=== PATIENT | female | born 1990 | race Caucasian/White ===

== ENCOUNTER 2019-10-20 03:26 | Emergency (ER) | payer MEDICAID ==
[2019-10-20 04:23] LABS: APPEARANCE,URINE CLEAR; BILIRUBIN,URINE NEGATIVE (NEGATIVE); COLOR,URINE YELLOW; GLUCOSE, URINE NEGATIVE (NEGATIVE); KETONES,URINE NEGATIVE (NEGATIVE); LEUKOCYTE ESTERASE,URINE NEGATIVE (NEGATIVE); NITRITE,URINE NEGATIVE (NEGATIVE); PROTEIN,URINE NEGATIVE (NEGATIVE); URINE SPECIFIC GRAVITY 1.016; UROBILINOGEN,URINE NEGATIVE mg/dL (<2.0)
--- NOTE | 2019-10-20 05:16 | RADIOLOGY REPORT (SQ) ---
FIRST TRIMESTER OBSTETRIC ULTRASOUND: 10/20/2019 4:13 AM CDT COMPARISON: None available HISTORY: 29-year old patient with vaginal bleeding, . TECHNIQUE: Multiple collins scale and color Doppler images of the pelvis were obtained transabdominally and transvaginally. FINDINGS: The uterus measures 10.6 x 1.8 x 9.2 cm. A single gestational sac is seen within the uterus. The sac contains an embryo no measurements were obtained on current imaging. Cardiac motion is present with a heart rate of 141 bpm. No perigestational hemorrhage is seen. The cervix measures 3.5 cm in length. The bilateral ovaries were not visualized. No free fluid is seen in the cul-de-sac. IMPRESSION: There is a single, live intrauterine gestation. No measurements were obtained on current imaging. Obstetric follow up for routine care should be performed.
[2019-10-20 06:36] LABS: ABSOLUTE EOSINOPHILS # (AUTO) 0.1 10^3/uL (0.0-0.6); ABSOLUTE LYMPHOCYTES (AUTO) 1.6 10^3/uL (0.5-4.7); ABSOLUTE MONOCYTES (AUTO) 0.4 10^3/uL (0.1-1.4); ABSOLUTE NEUT (AUTO) 6.5 10^3/uL (1.7-8.2); BASOPHILS % (AUTO) 0.4 % (0-2); EOSINOPHILS % (AUTO) 0.8 % (0-6); HEMATOCRIT 41.6 % (36.0-47.0); HEMOGLOBIN 14.7 g/dL (12.0-15.5); LYMPHOCYTES % (AUTO) 18.7 % (13-45); MEAN CORPUSCULAR HGB CONC 35.3 g/dL (32.0-36.0); MEAN CORPUSCULAR VOLUME 91 fl (80-97); MONOCYTES % (AUTO) 4.8 % (3-13); PLATELET COUNT 185 10^3/uL (150-450); RED CELL DISTRIBUTION WIDTH 12.9 % (11.5-14.0); SEGMENTED NEUTROPHILS % (AUTO) 75.3 % (42-78); TOTAL CELLS COUNTED % (AUTO) 100 %; WHITE BLOOD COUNT 8.6 10^3/uL (4.0-10.5)
[2019-10-20] MEDS ORDERED: RINGERS SOLUTION,LACTATED 1,000 ML IV ONE (08:54)
--- NOTE | 2019-10-20 10:30 | ER Document Report ---
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 Patient states she is x13 weeks and takes vitamins. Patient states she is A0, and the past x4 pregnancies did not have any complications. Patient states she visited [facility] days ago for a check up and had a ultrasound for genetic testing, which showed normal results. Patient states this morning she had x2 dark blood clots and wiped away some blood when using the bathroom before being seen in the ED. Denies vaginal discharge, intercourse, or UTI's. Patient reports some morning sickness and intermittent cramping lately. - Related Data Allergies/Adverse Reactions: Penicillins Allergy (Verified 10/20/19 03:57) Past Medical History - General Information source: Patient - Social History Smoking Status: Never Smoker Cigarette use (# per day): No Lives with: Family Family History: Reviewed & Not Pertinent Pulmonary Medical History: Reports: Hx Asthma Review of Systems - Review of Systems Constitutional: No symptoms reported EENT: No symptoms reported Cardiovascular: No symptoms reported Respiratory: No symptoms reported Gastrointestinal: See HPI Genitourinary: No symptoms reported Female Genitourinary: See HPI, , Vaginal bleeding. denies: Vaginal discharge Musculoskeletal: No symptoms reported Skin: No symptoms reported Hematologic/Lymphatic: No symptoms reported Neurological/Psychological: No symptoms reported -: Yes All other systems reviewed and negative Physical Exam - Vital signs Vitals: Temp Pulse BP Pulse Ox 98.4 F 83 119/77 100 10/20/19 03:53 10/20/19 03:53 10/20/19 03:53 10/20/19 03:53 - General General appearance: Appears well, Alert - HEENT Head: Normocephalic, Atraumatic Eyes: Normal Pupils: PERRL - Respiratory Respiratory status: No respiratory distress Chest status: Nontender Breath sounds: Normal Chest palpation: Normal - Cardiovascular Rhythm: Regular Heart sounds: Normal auscultation Murmur: Yes Systolic murmur grade 1-6: 2 - Abdominal Inspection: Other - Soft Distension: No distension Bowel sounds: Normal Tenderness: Nontender - Genitourinary Notes: Speculum exam shows some mild vaginal bleeding. Blood is dark and and was swabbed for testing. Cervix is closed. - Extremities General upper extremity: Normal inspection. No: Edema General lower extremity: Normal inspection. No: Edema - Neurological Neuro grossly intact: Yes Cognition: Normal Orientation: AAOx4 Speech: Normal - Psychological Associated symptoms: Normal affect, Normal mood - Skin Skin Temperature: Warm Skin Moisture: Dry Skin Color: Normal Course - Re-evaluation Re-evalutation: 10/20/19 10:21 Patient in no pain at this time. Patient has no nausea vomiting or diarrhea. Or burning urination. Patient denies any vaginal discharge. Patient has noted when she went to the bathroom in the ED that there still was some blood present when she wiped. Patient is 13 weeks and ultrasound does not show any acute process going on at this time no evidence for hemorrhage and heart rate was 141. 10/20/19 10:24 Patient's blood type is a positive therefore no indication for RhoGam. - Vital Signs Vital signs: Temp Pulse Resp BP Pulse Ox 98.4 F 83 119/77 100 10/20/19 03:53 10/20/19 03:53 10/20/19 03:53 10/20/19 03:53 10/20/19 10:22 Vital signs stable - Laboratory Result Diagrams: 10/20/19 06:20 Laboratory results interpreted by me: 10/20/19 10/20/19 04:01 06:20 Beta HCG, Quant [id number] H Urine Blood MODERATE H 10/20/19 10:22 Moderate blood in urine most likely contaminant from vaginal bleed and 13-week patient. - Diagnostic Test Radiology reviewed: Image reviewed, Reports reviewed Radiology results interpreted by me: 10/20/19 10:22 Ultrasound shows heart rate 141 of the fetus and fetus is in the proper location. No evidence for any bleeding. Discharge - Discharge Clinical Impression: Threatened miscarriage in early Disposition: HOME, SELF-CARE Instructions: Bleeding During Early ([facility]), [facility], Threatened Miscarriage ([facility]) Additional Instructions: You have a threatened miscarriage at this time with vaginal bleed. Currently you are stable and we recommend that you rest and drink plenty of fluids and no prolonged standing. 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 And I understand your OB gynecology clinic is the [place]. Please return to the hospital if you have any problems between your next visit with your OB doctor thank you I personally performed the services described in the documentation, reviewed and edited the documentation which was dictated to the scribe in my presence, and it accurately records my words and actions.
[2019-10-20 10:41] VITALS: BP 128/81
[2019-10-20 11:20] LABS: CHLAM PCR NOT DETECTED (NOT DETECT)
== END 2019-10-20 10:37 | disposition home or self-care (01) ==
LOC: ER 03:26
DX: O20.0 Threatened abortion (principal); Z3A.13 13 weeks gestation of pregnancy; Z88.0 Allergy status to penicillin
CPT/HCPCS: 99284; 96360; 86900; 86901; 36415; 84702; 85025; 81001; 87491; 87591; 76815; J7120